=== PATIENT | male | born 1990 | race African-American/Black ===

== ENCOUNTER 2025-08-09 02:24 | Inpatient (IN) | payer MEDICAID, OTHER ==
[~2025-08-09] VITALS: Ht 180.3 cm; Wt 86.2 kg
[2025-08-09] MEDS: LORazepam 2 MG/ML VIAL IM ONE (03:21)
[2025-08-09] MEDS ORDERED: ZOLPIDEM TARTRATE 10 MG TABLET PO PRN (04:30)
[2025-08-09 06:34] LABS: COVID AG,FIA SOURCE NASAL SWAB
[2025-08-09 06:54] LABS: SARS-COV2 (COVID) ANTIGEN,FIA Negative (Negative)
[2025-08-09 09:31] VITALS: O2SAT 99
[2025-08-09 12:58] VITALS: RESP 16
[2025-08-09] MEDS ORDERED: LOPERAMIDE HCL 2 MG CAPSULE PO PRN (18:45)
[2025-08-09] MEDS ORDERED: ONDANSETRON 4 MG TABLET PO PRN (18:45)
[2025-08-09] MEDS ORDERED: DOCUSATE SODIUM 100 MG CAPSULE PO PRN (18:45)
[2025-08-09] MEDS ORDERED: BENZOCAINE/MENTHOL [CEPACOL] LOZENGE PO PRN (18:45)
[2025-08-09] MEDS ORDERED: ACETAMINOPHEN 325 MG TABLET PO PRN (18:45)
[2025-08-09] MEDS ORDERED: IBUPROFEN 600 MG TABLET PO PRN (18:45)
[2025-08-09] MEDS ORDERED: PETROLATUM,WHITE 28 GM JELLY TP PRN (18:45)
[2025-08-09] MEDS ORDERED: MAG HYDROX/ALUMINUM HYD/SIMETH ES 30 ML SUSPENSION UDCUP PO PRN (18:45)
[2025-08-09] MEDS ORDERED: MAGNESIUM HYDROXIDE SUSPENSION 30 ML UDCUP PO PRN (18:45)
[2025-08-09] MEDS ORDERED: ALBUTEROL SULFATE HFA 90 MCG/PUFF 8 GM INHALER IH PRN (18:45)
[2025-08-09] MEDS ORDERED: BACITRACIN 28 GM OINTMENT TP PRN (18:45)
[2025-08-09] MEDS ORDERED: OMEPRAZOLE 20 MG CAPSULE PO PRN (18:45)
[2025-08-09 20:12] VITALS: BP_SYST 119; BP_SYST 135; BP_DIAS 78; BP_DIAS 79; PULSE 100; RESP 18; TEMP 98.4; TEMP 98.6; O2SAT 100
[2025-08-10 08:01] VITALS: BP 115/88; PULSE 80; RESP 17; TEMP 98; O2SAT 100
[2025-08-10 20:12] VITALS: BP 115/78; PULSE 73; RESP 18; TEMP 98.4; O2SAT 100
[2025-08-11 08:40] VITALS: RESP 17
[2025-08-11 10:36] VITALS: BP 141/92; PULSE 68; RESP 18; TEMP 97.5; O2SAT 100
[2025-08-11 20:00] VITALS: BP 136/84; PULSE 72; RESP 18; TEMP 97.8; O2SAT 99
[2025-08-12 12:41] VITALS: BP 126/81; PULSE 64; RESP 16; TEMP 98.1; O2SAT 98
[2025-08-13 08:05] VITALS: BP 142/92; PULSE 63; RESP 16; TEMP 98.4; O2SAT 100
[2025-08-13] MEDS ORDERED: RISP-32 PO (11:52)
== END 2025-08-13 12:18 | disposition home or self-care (01) | DRG 761 ==
LOC: EMS 02:27 → CANBEDREQ 05:48 → EDBEDREQ 06:15 → EDBEDREQSVC 06:15 → B3A 09:16
PROVIDERS: ADMIT Psychiatry & Neurology Psychiatry; ATTEND Psychiatry & Neurology Psychiatry
PROC: GZHZZZZ Group Psychotherapy (ICD-10-PCS; principal; 2025-08-10)
PROC: GZ52ZZZ Individual Psychotherapy, Cognitive (ICD-10-PCS; 2025-08-12)
DX: F25.0 Schizoaffective disorder, bipolar type (principal); Z59.00 Homelessness unspecified; I10 Essential (primary) hypertension; Z20.822 Contact with and (suspected) exposure to COVID-19; F41.9 Anxiety disorder, unspecified; G47.00 Insomnia, unspecified; K59.00 Constipation, unspecified; Z78.1 Physical restraint status; Z79.899 Other long term (current) drug therapy
CPT/HCPCS: J1200; J1630; J2060; J3230